=== PATIENT | female | born 1960 | race Caucasian/White ===

== ENCOUNTER → 2020-12-22 | Outpatient (CLI) | payer BC ==
[2020-12-22 09:05] LABS: HEMOGLOBIN 14.2 gm/dl (12.3-15.3); RED BLOOD COUNT 4.58 M/UL (4.00-5.10)
[2020-12-22 09:27] LABS: BUN/CREATININE RATIO 18 (0-10)
== END ==
LOC: LAB 08:15
PROVIDERS: Nurse Practitioner Family
DX: Z13.220 Encounter for screening for lipoid disorders (principal); E03.9 Hypothyroidism, unspecified; E55.9 Vitamin D deficiency, unspecified
CPT/HCPCS: 36415; 80053; 80061; 81001; 84439; 84443; 85025

== ENCOUNTER → 2021-01-20 | Outpatient (CLI) | payer BC ==
[2021-01-20 10:06] LABS: HEMOGLOBIN 14.1 gm/dl (12.3-15.3); RED BLOOD COUNT 4.67 M/UL (4.00-5.10)
== END ==
LOC: LAB 08:54
PROVIDERS: Nurse Practitioner Family
DX: D72.819 Decreased white blood cell count, unspecified (principal)
CPT/HCPCS: 36415; 85025

== ENCOUNTER → 2021-06-17 | Outpatient (CLI) | payer BC ==
[2021-06-18 08:13] LABS: ESTRADIOL 11.7 pg/mL (.); FSH 61.4 mIU/mL (.); LUTEINIZING HORMONE(LH) 57.9 mIU/mL (.)
== END ==
LOC: LAB 08:07
PROVIDERS: Nurse Practitioner Family
DX: Z78.0 Asymptomatic menopausal state (principal)
CPT/HCPCS: 36415; 82670; 83001; 83002

== ENCOUNTER → 2021-07-19 | Outpatient (CLI) | payer BC | LOC: EXRD 06-30 11:30 | DX: Z78.0 Asymptomatic menopausal state (principal); M85.88 Other specified disorders of bone density and structure, other site; M85.852 Other specified disorders of bone density and structure, left thigh | CPT/HCPCS: 77080 ==

== ENCOUNTER → 2021-12-21 | Outpatient (CLI) | payer BC ==
[2021-12-21 10:14] LABS: HEMOGLOBIN 14.1 gm/dl (12.3-15.3); RED BLOOD COUNT 4.5 M/UL (4.00-5.10); WHITE BLOOD COUNT 4.2 K/UL (4.5-11.0)
[2021-12-21 10:34] LABS: BUN/CREATININE RATIO 21 (0-10)
== END ==
LOC: LAB 08:10
PROVIDERS: Nurse Practitioner Family
DX: E03.9 Hypothyroidism, unspecified (principal); E55.9 Vitamin D deficiency, unspecified
CPT/HCPCS: 36415; 80053; 80061; 81001; 84439; 84443; 85027

== ENCOUNTER → 2022-08-07 | Outpatient (CLI) | payer BC ==
[~2022-08-07] MED LIST: BRIMONIDINE; CALCIUM 600 MG1 EAC4 PO; CETIRIZINE HCL10 MG PO; DOXYCYCLINE MON50 M1 PO; FLUCONAZOLE150 MG PO; FLUTICASONE; LEVOTHYROXINE25 MC1 PO; MYCOSTATIN OINT15 GM TOP; TIMOLOL MALEATE15 M1 OS; TYLENOL 8 HOUR650 MG PO; VITAMIN D31250 MCG PO; VOLTAREN
[2022-08-07 09:13] LABS: HEMOGLOBIN 13.9 gm/dl (12.3-15.3); RED BLOOD COUNT 4.46 M/UL (4.00-5.10); WHITE BLOOD COUNT 4.1 K/UL (4.5-11.0)
== END ==
LOC: OPSV2 08:00
PROVIDERS: Obstetrics & Gynecology
DX: Z01.812 Encounter for preprocedural laboratory examination (principal); N95.0 Postmenopausal bleeding
CPT/HCPCS: 36415; 81001; 85025

== ENCOUNTER → 2022-08-18 | Day surgery (SDC) | payer BC ==
[~2022-08-18] MED LIST changes: +COLACE 100MG C100 MG PO; +NAPROXEN250 MG PO; +ROXICODONE TAB 55 MG PO
== END | disposition home or self-care (01) ==
LOC: OR 06:19
DX: N84.0 Polyp of corpus uteri (principal); E03.9 Hypothyroidism, unspecified; Z88.2 Allergy status to sulfonamides
CPT/HCPCS: 71045; 93005; J1100; J1885; J2250; J2405; J2795; J3010